=== PATIENT | female | born 1990 | race American Indian/Alaskan Native ===

== ENCOUNTER 2018-10-12 08:59 | Emergency (ER) | payer OTHER ==
[2018-10-12 09:26] VITALS: BP 144/77
[2018-10-12] MEDS ORDERED: IBUPROFEN PO ONE (12:27)
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
== END 2018-10-12 12:37 | disposition home or self-care (01) ==
LOC: ED 08:59
DX: M25.531 Pain in right wrist (principal); R10.9 Unspecified abdominal pain; R07.89 Other chest pain; F12.10 Cannabis abuse, uncomplicated; Z79.899 Other long term (current) drug therapy; V49.49XA Driver injured in collision with other motor vehicles in traffic accident, initial encounter; Y93.89 Activity, other specified; Y92.89 Other specified places as the place of occurrence of the external cause; Y99.8 Other external cause status
CPT/HCPCS: 99281